=== PATIENT | male | born 1965 | race African-American/Black ===

== ENCOUNTER 2020-05-31 12:47 | Emergency (ER) | payer MEDICAID ==
[~2020-05-31] VITALS: Ht 188 cm; Wt 100.0 kg
[2020-05-31 12:49] VITALS: BP 138/99
== END 2020-05-31 13:33 | disposition left against medical advice (07) ==
LOC: ER 13:10
DX: Z53.21 Procedure and treatment not carried out due to patient leaving prior to being seen by health care provider (principal)